=== PATIENT | female | born 1955 | race Caucasian/White ===

== ENCOUNTER 2018-09-07 13:30 | Outpatient (RCR) | payer BC, SELFPAY ==
--- NOTE | 2018-08-10 15:52 | HP.OTEVAL_ITS ---
Patient's Visit Information CLARE DUNNE is a 62 year old F, referred to Occupational Therapy by Alex Souza MD, with a diagnosis of left Unilateral primary osteoarthritis of 1st Carpometacarpal joint of left. Date of Evaluation: 08/10/18 Occupational Therapist: Lexie Marquez, OTR/L, CHT - Subjective Subjective: Pt states for several years her left thumb had been painful- pt went to see Dr. Souza and he opt for sx. left CMC joint pain. pt works at [employer] and needs to return to work lifting 30#. pt states she does still have pain and her fingers are sore. - Pain left hand 3 Pain Intensity Range: 1, 4 - ROM Wrist: left 55/35 right 75/70 CMC: left 5 right 10 MP: left 25 right 65 IP: left 30 right 72 Opposition: 4 - Strength Lace Paper Machine Operator: left NT right 55# Lateral Pinch: left NT right 8# Tripod Pinch: left NT right 8# - Edema Wrist: left 21.5cm right 17 Proximal Phalanx: left 21cm right 21 - Sensation Sensation Comments: denies - Hand/Wrist Evaluation Total Score of Pain & Functional Sections: 71 - Goals Goal:100% adherence to protocol: Yes Comment: CMC arthroplasty protocol Goal:Daily scar massage when approriate: Yes Goal:ROM equal to unaffected hand: Yes Goal:Lace Paper Machine Operator/Pinch strength at least 75% of unaffected hand: Yes Goal:No pain with affected hand use: Yes Goal:Full use of affected hand in daily activities including: Yes - Rehabilitation General Assessment: PT is currently 5 weeks s/p left CMC arthroplasty. Pt attends session with radial side thumb spica orthosis on- needing adj to increase comfort. pt is demo limited left wrist/thumb ROM, edema and limited functional strength following her arthroplasty. pt would benefit from skillled OTR/L, CHT services 1-2x week for 4-6 weeks. Theray services will follow CMC arthroplasty protocol. Rehabilitation Potential: Excellent - Anticipated Interventions Anticipated Interventions: A/AAROM/PROM, Strengthening, Sensory Retraining, Modalities, Orthoses, Joint Protection/Energy Conservation, Ergonomic Education, Fine Motor Coord/Ramiro - Visit Plan Frequency: 2-3x /Week Duration: 6 Weeks TEXT: Thank you for the opportunity to evaluate your patient. For Medicare and Medicare HMO plans, please review the plan of care and approve it. It will need to be FAXED BACK to us at [phone] for Medicare purposes. Please let me know if there are questions or concerns regarding this plan of care. Physician Signature: Date:
--- NOTE | 2019-02-13 08:20 | HP.OTDCSUM_ITS ---
HP - OT D/C Summary It has been my pleasure to treat CLARE DUNNE under orders from Alex Souza MD, for the diagnosis of left Unilateral primary osteoarthritis of 1st Carpometacarpal joint of left for a total of 7 visit(s). Please see the following information for a summary of their discharge status. - Objective Objective/Function: pt. is reporting less pain overall. OT noted that pt. is likely over working thumb area at work. OT instructed pt. to wear brace while at work. - Goals Patient Goals: Regain Mobility, Regain Strength, Decrease Pain, Decrease Swelling/Stiffness, Improve Fine Motor Skills, Use Hand/Wrist/Arm Normally Again, Be More Independent in ADLS Goal:100% adherence to protocol: Yes Goal:Daily scar massage when approriate: Yes Goal:ROM equal to unaffected hand: Yes Goal:Trauma Program Manager/Pinch strength at least 75% of unaffected hand: Yes Goal:No pain with affected hand use: Yes Goal:Full use of affected hand in daily activities including: Yes - Plan Plan: cont. BTE. PB. UE exercises. vibration. work simulation - D/C Information If there are questions or concerns regarding this patient's occupational therapy, please fell free to call me at [phone]. Thank you for the referral of this patient. Sincerely, Lexie Marquez, OTR/L, CHT
--- NOTE | 2019-02-13 08:20 | HP.OT.NRP ---
HP - Discharge Summary - Patient Information CLARE DUNNE was seen in my office for initial evaluation on 08/10/18. The following Plan of Care was established for this patient: Initial Frequency: 2-3x /Week Initial Duration: 6 Weeks Plan: cont. BTE. PB. UE exercises. vibration. work simulation - Anticipated Interventions Anticipated Interventions: A/AAROM/PROM, Strengthening, Sensory Retraining, Modalities, Orthoses, Joint Protection/Energy Conservation, Ergonomic Education, Fine Motor Coord/Ramiro This patient was last seen in our office 09/07/18. Pertinent comments regarding their Occupational therapy will appear below: pt. made progress with strength and ROM, reported overall decrease in pain and ability to engage in more BADL's and IADL's. pt. last seen on 09/07/18 and cancelled several therapy sessions making overall progress variable. pt. d/c d/t time lapse from last therapy session. pt. educated on HEP during therapy sessions. At this point I will be discontinuing this patient from occupational therapy. I would be happy to see this patient again in the future if found appropriate by the physician. Thank you! Lexie Marquez, OTR/L, CHT
== END 2018-09-07 19:00 | disposition home or self-care (01) ==
LOC: OT 13:30
PROVIDERS: Family Provider Internal Medicine; PCP Internal Medicine; Referring Provider Orthopaedic Surgery; Visit Provider Orthopaedic Surgery
DX: M18.12 Unilateral primary osteoarthritis of first carpometacarpal joint, left hand (principal)
CPT/HCPCS: 97035; 97110; 97140; 97166; 97763

== ENCOUNTER 2022-04-05 08:33 | Observation (INO) | payer BC, SELFPAY ==
[2022-04-05] VITALS (20 sets, daily range): BP systolic 118–170; BP diastolic 65–98; PULSE 64–78; RESP 14–18; TEMP 36.6–37.2; O2SAT 97–99; BMI 43.9; BMI 43.1
--- NOTE | 2022-04-05 08:43 | EKG12_ITS ---
Test Reason : CP Blood Pressure : / mmHG Vent. Rate : 072 BPM Atrial Rate : 072 BPM P-R Int : 178 ms QRS Dur : 144 ms QT Int : 424 ms P-R-T Axes : 002 -58 137 degrees QTc Int : 464 ms Normal sinus rhythm Left axis deviation Left bundle branch block Abnormal ECG Confirmed by BARBARA MARR, DARLING ([id number]), production editor ELOISE ALLEN ([id number]) on 04/06/2022 1:33:55 PM Referred By: BB Confirmed By:DARLING JIMENEZ MD
--- NOTE | 2022-04-05 08:55 | EDS_ITS ---
HPI History of Present Illness Chief Complaint: Chest Pain Informant: patient Onset/Context/Timing Onset: Today Activity at onset: sleep Timing: Intermittent Quality: Positive for Heaviness Location: Substernal (Without radiation) Current Severity: Gone Maximum Severity: Moderate Worsened By: Exertion Relieved By: Rest Associated Symptoms: Positive for Nausea (Gone now) and Dyspnea (Exertional ongoing); Negative for Vomiting, Diaphoresis, Cough, Fever, Lightheadedness and Palpitations Narrative Narrative: Patient states she woke up in a panic attack with no other symptoms. States she felt like she was crawling out of her skin, she has had panic attacks in the past but she woke up with this 1. And upon getting out of bed she noticed exertional dyspnea, it is mostly when she is going up and down flights of steps, not necessarily when just walking on flat ground short distances. She had chest heaviness when she was walking up the steps as well, the symptoms resolved upon resting for several minutes. She denies any other symptoms this morning, no cough or symptoms of an illness recently she felt fine when she went to bed last night. She has an as needed prescription for furosemide that she takes when her legs get swollen, she has not taken any in a long time but she took 1 prior to coming here today. Her legs have not been swollen lately. She denies orthopnea overnight or PND necessarily. She has a history of a dilated cardiomyopathy, she states she has had a cath and received no stents during it but does not remember the details of the cath. She follows with cardiology here, Dr. Bhardwaj. [facility] Medical History Dilated cardiomyopathy Diverticulosis Essential (primary) hypertension Hemorrhoid HLD (hyperlipidemia) Left bundle branch block (LBBB) Home Medications nitrofurantoin macrocrystal 50 mg PO DAILY 01/27/14 [History Last Taken Unknown] sertraline 50 mg PO DAILY 01/27/14 [History Last Taken Unknown] furosemide 40 mg tablet 40 mg PO DAILY PRN 09/07/18 [History Last Taken Unknown] azelaic acid 15 % topical gel 1 applic TOPICAL .3xweek g 09/06/19 [History Last Taken Unknown] cholecalciferol (vitamin D3) 1,250 mcg (50,000 unit) capsule 50,000 unit PO .QOW cap 09/06/19 [History Last Taken Unknown] aspirin 81 mg tablet,delayed release 81 mg PO DAILY 08/24/21 [History Last Taken Unknown] nabumetone 750 mg tablet 750 mg PO DAILY tab 08/24/21 [History Last Taken Unknown] pravastatin 40 mg tablet 40 mg PO QHS #90 tab 08/27/21 [Rx Last Taken Unknown] enalapril maleate 10 mg tablet 10 mg PO BID #180 tab 09/29/21 [Rx Last Taken Unknown] metoprolol succinate 100 mg tablet,extended release 24 hr 100 mg PO BID #180 tab 09/29/21 [Rx Last Taken Unknown] amlodipine 5 mg tablet 5 mg PO DAILY #90 tab 12/21/21 [Rx Last Taken Unknown] desloratadine [Clarinex] 5 mg PO DAILY 04/05/22 [History Last Taken Unknown] Allergy/AdvReac Type Severity Reaction Status Date / Time Sulfa (Sulfonamide Allergy Hives Verified 04/05/22 08:33 Antibiotics) Family History Father CAD (coronary artery disease) Myocardial infarction Mother CAD (coronary artery disease) Surgical History H/O section H/O knee surgery History of ankle surgery History of cardiac catheterization (10/26/01) History of hip replacement History of knee replacement procedure of right knee History of thumb surgery History of toe surgery Social History Smoking Status: Former smoker how long ago did patient quit smokin years ago alcohol intake: current alcohol intake frequency: holidays/special occasions only substance use type: does not use caffeine: Yes Type: tea Number of servings: 1 ROS ROS ED Constitutional Constitutional ED: Denies chills or fever(s) Eyes Eyes: Denies change in vision or diplopia ENT ENT ED: Denies rhinorrhea or sore throat Cardiovascular Cardiovascular: Reports as per HPI, chest pain and dyspnea on exertion; Denies orthopnea, palpitations or pedal edema Respiratory/Chest Respiratory/Chest: Reports as per HPI and dyspnea on exertion; Denies cough or orthopnea Gastrointestinal Gastrointestinal: Denies abdominal pain, diarrhea, nausea or vomiting Genitourinary Genitourinary ED: Denies dysuria or hematuria Musculoskeletal Musculoskeletal: Denies back pain or neck pain Integumentary Denies abscess or rash Neurologic Neurologic: Denies headache(s), paresthesias or weakness Psychiatric Psychiatric: Denies anxiety or suicidal thoughts EXAM Physical Exam Const Vital Signs: 04/05/22 08:36 04/05/22 09:06 04/05/22 09:11 Temperature 97.9 F Temperature Source Temporal Pulse Rate 78 70 69 Respiratory Rate 17 14 Respiratory Effort Normal Blood Pressure 170/86 H 139/76 H 139/76 H Blood Pressure Mean 114 97 Pulse Ox 97 99 Oxygen Delivery Method Room Air Room Air 04/05/22 10:34 04/05/22 11:00 Temperature Temperature Source Pulse Rate 74 74 Respiratory Rate 18 14 Respiratory Effort Blood Pressure 143/79 H 138/77 H Blood Pressure Mean 100 97 Pulse Ox 97 99 Oxygen Delivery Method Room Air Room Air Positive well nourished and well developed General Appearance ED: well developed and NAD HEENT Reports moist mucous membranes normocephalic and atraumatic Eyes PERRL and EOMs intact bilaterally Neck full ROM and supple Resp normal respiratory effort Resp Narrative: Few rhonchi bases otherwise clear Effort and Inspection: able to speak in complete sentences Cardio regular rate, regular rhythm and no murmurs Rate: Negative for tachycardic GI non-tender and non-distended Auscultation: normoactive bowel sounds Palpation: soft Back/Spine no CVA tenderness General Back: other FROM Extremity normal to inspection General Extremety ED: Negative for edema, pulses abnormal or tenderness General Extremity: Negative for edema or pulses abnormal Neuro oriented x3, CN's II-XII intact bilaterally and no sensory deficits noted Sensorium / Orientation: awake and alert Motor Exam: strength 5/5 throughout Skin no rashes or lesions noted and no wounds MDM MDM MDM Narrative Medical decision making narrative: Patient fairly hypertensive 170 systolic, so while working her up nitroglycerin paste was placed on her chest. Next blood pressure 138/77, she is feeling well. Her initial troponin is elevated at 111. Her EKG is different compared with her last, with regards to axis mostly but no acute injury pattern, but her last EKG was in 2001. I discussed with Dr. Bhardwaj with cardiology, he compared it to a more recent EKG from 2018 that he has, and it is unchanged. He requested that we keep the patient in the ED for short period of time until the Night Shift Manager can organize and they can take her up to study her. Discussed with hospitalist, she was given aspirin, no heparin or other medications desired at this time. Lab Data Attestation: I reviewed the patient's lab results. Labs: Laboratory Results - last 24 hr 04/05/22 04/05/22 04/05/22 09:00 09:00 09:00 WBC 9.8 RBC 4.64 Hgb 13.7 Hct 42.6 MCV 91.8 MCH 29.5 MCHC 32.2 RDW Std Deviation 48.7 H RDW Coeff of Briana 14.5 Plt Count 308 MPV 10.3 Immature Gran % (Auto) 0.300 Neut % (Auto) 66.6 Lymph % (Auto) 23.9 [place] % (Auto) 6.3 Eos % (Auto) 1.6 Baso % (Auto) 1.3 H Absolute Neuts (auto) 6.6 Absolute Lymphs (auto) 2.35 Nucleated RBC % 0 Sodium 136 Potassium 4.4 Chloride 104 Carbon Dioxide 27.0 Anion Gap 5 BUN 16 Creatinine 1.00 Estim Creat Clear Calc 53.21 Est GFR (MDRD) Af Amer 72 Est GFR (MDRD) Non-Af 59 L BUN/Creatinine Ratio 16.0 Glucose 143 H Calcium 9.7 Troponin I High Sens 111 H B-Natriuretic Peptide 30.5 Radiography Diagnostic Testing: Clinical Impression(s) from Imaging Studies Chest X-Ray 04/05/22 09:16 IMPRESSION: Mild cardiomegaly. No acute abnormality is seen. Electronically Signed: Riki Moncada MD at 9:48 EDT , Rhythm Strip Rhythm Strip: Sinus Rhythm Rate: 70 Ectopy: None EKG Initial EKG: Attestation: I personally reviewed and interpreted this EKG as follows: Interpretation: Sinus Rhythm, No Acute Injury Pattern and LBBB Prior EKG tracings: available for review (2001) Prior: Changed (see above) Discharge Plan Triage Chief Complaint: Chest Pain ED Provider: Pablo Hernandez Dx/Rx/DC Orders Clinical Impression: ACS (acute coronary syndrome) Prescriptions: No Action cholecalciferol (vitamin D3) 50,000 unit capsule 50,000 unit PO .QOW RF: 0 nabumetone 750 mg tablet 750 mg PO DAILY RF: 0 azelaic acid 15 % gel 1 applic TOPICAL .3xweek RF: 0 aspirin [Adult Aspirin Regimen] 81 mg tablet,delayed release (DR/EC) 81 mg PO DAILY RF: 0 nitrofurantoin macrocrystal 50 MG capsule 50 mg PO DAILY RF: 0 sertraline 50 MG tablet 50 mg PO DAILY RF: 0 furosemide 40 mg tablet 40 mg PO DAILY PRN (Reason: Edema) RF: 0 desloratadine [Clarinex] 5 mg Tablet 5 mg PO DAILY RF: 0 pravastatin 40 mg tablet 40 mg PO QHS Qty: 90 RF: 3 metoprolol succinate 100 mg tablet extended release 24 hr 100 mg PO BID Qty: 180 RF: 4 enalapril maleate 10 mg tablet 10 mg PO BID Qty: 180 RF: 4 amlodipine 5 mg tablet 5 mg PO DAILY Qty: 90 RF: 3 Primary Care Provider: Radha Austin Referrals: Radha Austin MD [Primary Care Provider] - Disposition Disposition: Acute Care Hospital [facility]
[2022-04-05 09:08] LABS: Absolute Lymphocyte Count 2.35 X10^3/uL (0.83-4.51); Absolute Neutrophil Count 6.6 X10^3/uL (2.0-7.7); Basophil# 0.13 X10^3/uL; Basophil% 1.3 % (0-1); Eosinophil# 0.16 X10^3/uL; Eosinophils% 1.6 % (0-5); Hematocrit 42.6 % (37-47); Hemoglobin 13.7 g/dL (12.0-15.0); Lymphocyte # 2.35 X10^3/ul (0.83-4.51); Lymphocyte % 23.9 % (19-41); Mean Corp Hgb Conc 32.2 g/dL (32-36); Mean Corpuscular Hgb 29.5 pg (27.0-32.0); Mean Corpuscular Volume 91.8 fL (81-99); Mean Platelet Vol. 10.3 fl (6.2-12.0); Monocyte# 0.62 X10^3/uL; Monocyte% 6.3 % (0-10); NRBC Flagged by Analyzer 0 % (0-5); Neutrophil # 6.55 X10^3/uL (2.7-7.7); Neutrophil % 66.6 % (47-70); Platelet Count 308 K/mm3 (150-450); RBC Distribution Width CV 14.5 % (11.6-14.6); RBC Distribution Width SD 48.7 fl (35.1-43.9); Red Blood Count 4.64 M/mm3 (4.2-5.4); White Blood Count 9.8 K/mm3 (4.4-11.0)
[2022-04-05] MEDS: Aspirin 81 MG TAB.CHEW 162 MG PO (09:11)
[2022-04-05] MEDS: Nitroglycerin Oint 1 INCH PACKET 0.5 INCH TRANSDERM. (09:11)
--- NOTE | 2022-04-05 09:16 | RAD_ITS ---
STUDY: X-RAY CHEST REASON FOR EXAM: Female, 66 years old. Chest pain TECHNIQUE: Single AP portable view of the chest. COMPARISON: None. FINDINGS: The lungs are clear and expanded. There is no demonstrated pleural abnormality. There is mild cardiac enlargement. Normal mediastinum and laureano. Normal visualized pulmonary arteries. There is atherosclerotic calcification of the aortic arch with tortuosity. There are diffuse degenerative changes of the visualized thoracic spine. Dextroscoliosis. Normal visualized ribs, clavicles, and shoulders. There is no demonstrated abnormality of the visualized soft tissue structures of the upper abdomen. RAD/Chest 1 View (Portable) IMPRESSION: Mild cardiomegaly. No acute abnormality is seen. Electronically Signed: Riki Moncada MD at 9:48 EDT ,
[2022-04-05 09:24] LABS: Anion Gap 5 (5-15); BUN 16 mg/dL (7-18); Calcium,Total 9.7 mg/dL (8.5-10.1); Chloride 104 mmol/L (98-107); EST Glomerular Filtration Rate 59 mL/min (>60); Est Glom Filt Rate - Afr Amer 72 mL/min (>60); Estimated Creatinine Clearance 53.21 ml/min; Glucose 143 mg/dL (74-106); Potassium 4.4 mmol/L (3.5-5.1); Sodium Level 136 mmol/L (136-145); Troponin-I HS (w/2H Reflex) 111 pg/mL (3.0-54.0)
[2022-04-05 09:42] LABS: BNP,B-Type NATRIURETIC PEPTIDE 30.5 pg/mL (0-100)
[2022-04-05 11:05] LABS: Reflex Troponin-HS? (from REC) Y
--- NOTE | 2022-04-05 11:28 | NURSING ---
PCU AFTER [employer] [facility] ACUTE CORONARY SYNDROME
--- NOTE | 2022-04-05 11:49 | CON.PCM.CA_ITS ---
Assessment & Plan Assessment/Plan (1) ACS (acute coronary syndrome): PLAN: She presents with chest discomfort which is somewhat atypical. However due to the abnormality in the cardiac enzymes we may need to further haile luate the above. With a left bundle branch block as well as a cardiomyopathy a stress test may be fraught with false positive. After speaking with her I would prefer that we evaluate the above with a left heart catheterization. The risk benefits alternatives of and explained to her she understands and agrees to proceed. Depending on the findings further recommendations will be made. (2) Dilated cardiomyopathy: PLAN: She does have a history of a cardiomyopathy. We will continue to follow her and further recommendations made. (3) Essential (primary) hypertension: PLAN: Her blood pressure is under good control at this time and I would not make any other major changes. Thank you for allowing me to participate in the care of your patient. Please don't hesitate to call if any issues arise. HPI Consult Data Date of Consult: 04/05/22 HPI Narrative HPI Narrative: CLARE DUNNE, is a 66 F who presented to the emergency room this morning complaining of chest heaviness. She does have a history of known hypertension, nonischemic cardiomyopathy, with an estimated ejection fraction of 50%. She also has a chronic left bundle branch block. She presented today and was seen by the ER physician. He felt that there was some change in the EKG. Cardiac enzymes were obtained which were initially abnormal and a follow-up EKG was unchanged and a follow-up troponin was noted to have been elevated at 111. It was therefore decided to admit her for further observation and management. At this particular time she denies any chest pain. She has been compliant with her medications. She remains on a beta-nuzhat, statin, and NANETTE inhibitor. [facility] Medical History Dilated cardiomyopathy Diverticulosis Essential (primary) hypertension Hemorrhoid HLD (hyperlipidemia) Left bundle branch block (LBBB) Home Medications nitrofurantoin macrocrystal 50 mg PO DAILY 01/27/14 [History Last Taken Unknown] sertraline 50 mg PO DAILY 01/27/14 [History Last Taken Unknown] furosemide 40 mg tablet 40 mg PO DAILY PRN 09/07/18 [History Last Taken Unknown] azelaic acid 15 % topical gel 1 applic TOPICAL .3xweek g 11/07/19 [History Last Taken Unknown] cholecalciferol (vitamin D3) 1,250 mcg (50,000 unit) capsule 50,000 unit PO .QOW cap 09/06/19 [History Last Taken Unknown] aspirin 81 mg tablet,delayed release 81 mg PO DAILY 08/24/21 [History Last Taken Unknown] nabumetone 750 mg tablet 750 mg PO DAILY tab 08/24/21 [History Last Taken Unknown] pravastatin 40 mg tablet 40 mg PO QHS #90 tab 08/27/21 [Rx Last Taken Unknown] enalapril maleate 10 mg tablet 10 mg PO BID #180 tab 09/29/21 [Rx Last Taken Unknown] metoprolol succinate 100 mg tablet,extended release 24 hr 100 mg PO BID #180 tab 09/29/21 [Rx Last Taken Unknown] amlodipine 5 mg tablet 5 mg PO DAILY #90 tab 12/21/21 [Rx Last Taken Unknown] desloratadine [Clarinex] 5 mg PO DAILY 04/05/22 [History Last Taken Unknown] Allergy/AdvReac Type Severity Reaction Status Date / Time Sulfa (Sulfonamide Allergy Hives Verified 04/05/22 08:33 Antibiotics) Family History Father CAD (coronary artery disease) Myocardial infarction Mother CAD (coronary artery disease) Surgical History H/O section H/O knee surgery History of ankle surgery History of cardiac catheterization (10/26/01) History of hip replacement History of knee replacement procedure of right knee History of thumb surgery History of toe surgery Social History Smoking Status: Former smoker how long ago did patient quit smokin years ago alcohol intake: current alcohol intake frequency: holidays/special occasions only substance use type: does not use caffeine: Yes Type: tea Number of servings: 1 ROS Constitutional Constitutional: Denies fever(s) or weight loss Eyes Eyes: Reports systems reviewed and no addt'l complaints, except as documented ENT HEENT: Reports systems reviewed and no addt'l complaints, except as documented Cardiovascular Cardiovascular: Denies chest pain at rest, chest pain with activity, dyspnea at rest, dyspnea on exertion, edema, palpitations or paroxysmal nocturnal dyspnea Respiratory/Chest Respiratory/Chest: Denies dyspnea on exertion, productive cough, shortness of breath at rest or shortness of breath with exertion Gastrointestinal Gastrointestinal: Denies change in bowel habits, nausea, vomiting or weight changes Genitourinary Genitourinary: Denies difficulty urinating Musculoskeletal Musculoskeletal: Denies joint stiffness or muscle weakness Integumentary Integumentary: Denies lesions Neurologic Neurologic: Denies dizziness or syncope Psychiatric Psychiatric: Denies anxiety Endocrine Endocrinology: Denies excessive sweating or fatigue Hematologic/Lymphatic Hematologic/Lymphatic: Denies anemia Allergic/Immunologic Allergic/Immunologic: Denies seasonal rhinorrhea Physical Exam Const alert, oriented x3 and no apparent distress General Appearance: cooperative HEENT hearing grossly normal bilaterally Head and Scalp: atraumatic Eyes EOMs intact bilaterally Neck General: normal visual inspection Chest inspection of chest normal and palpation of chest normal Resp normal respiratory effort Auscultation: clear to auscultation bilaterally Cardio regular rate, regular rhythm, S1 normal heart sound and S2 normal heart sound Jugular Venous Distention: JVD GI normal to inspection, nondistended, normoactive bowel sounds Extremity normal capillary refill and no pedal edema Peripheral Pulses: Yes pulses 2+ throughout and femoral pulses present Skin no rashes or lesions noted Neuro oriented x3 and CN's II-XII intact bilaterally Psych Appearance: grossly normal and appropriate Risk Stratification Risk Stratification Applicable: Yes Age >/= 65: No >/= 3 CAD Risk Factors (HTN, HLD, DM, family hx of CAD, or current smoker): No Aspirin Use in the Past 7 Days: No Severe Angina (>/= episodes in 24 hours): No EKG ST Changes >/= 0.5mm: No Positive Cardiac Marker: Yes POLLY Risk Stratification Score: 1 POLLY % Risk: 5% Risk Objective Data Vital Signs: Vital Signs Temp Pulse Resp BP Pulse Ox 98.9 F 74 16 128/80 H 98 04/05/22 11:10 04/05/22 11:10 04/05/22 11:25 04/05/22 11:25 04/05/22 11:10 Oxygen Delivery Method Room Air Weight: 272 lb 4.334 oz Body Mass Index (BMI) 43.9 Lab / Micro Data Result Diagrams: 04/05/22 09:00 04/05/22 09:00 Labs: Laboratory Results - last 24 hr 04/05/22 09:00: WBC 9.8, RBC 4.64, Hgb 13.7, Hct 42.6, MCV 91.8, MCH 29.5, MCHC 32.2, RDW Std Deviation 48.7 H, RDW Coeff of Briana 14.5, Plt Count 308, MPV 10.3, Immature Gran % (Auto) 0.300, Neut % (Auto) 66.6, Lymph % (Auto) 23.9, [place] % (A uto) 6.3, Eos % (Auto) 1.6, Baso % (Auto) 1.3 H, Absolute Neuts (auto) 6.6, A bsolute Lymphs (auto) 2.35, Nucleated RBC % 0 04/05/22 09:00: Sodium 136, Potassium 4.4, Chloride 104, Carbon Dioxide 27.0, Anion Gap 5, BUN 16, Creatinine 1.00, Estim Creat Clear Calc 53.21, Est GFR (MDRD) Af Amer 72, Est GFR (MDRD) Non-Af 59 L, BUN/Creatinine Ratio 16.0, Glucose 143 H, Calcium 9.7, Troponin I High Sens 111 H 04/05/22 09:00: B-Natriuretic Peptide 30.5 Rhythm Strip Rhythm Strip: Sinus Rhythm Rate: 70 Ectopy: None Cardiology Labs/Tests 04/05/22 09:00: WBC 9.8, RBC 4.64, Hgb 13.7, Hct 42.6, MCV 91.8, MCH 29.5, MCHC 32.2, Plt Count 308, MPV 10.3, Immature Gran % (Auto) 0.300, Neut % (Auto) 66.6, Lymph % (Auto) 23.9, [place] % (Auto) 6.3, Eos % (Auto) 1.6, Baso % (Auto) 1.3 H, Absolute Neuts (auto) 6.6, Nucleated RBC % 0 04/05/22 09:00: Sodium 136, Potassium 4.4, Chloride 104, Carbon Dioxide 27.0, Anion Gap 5, BUN 16, Creatinine 1.00, Est GFR (MDRD) Af Amer 72, Est GFR (MDRD) Non-Af 59 L, BUN/Creatinine Ratio 16.0, Glucose 143 H, Calcium 9.7 04/05/22 09:00: B-Natriuretic Peptide 30.5 Rhythm: EKG: ECHO: Stress Test: Cardiac Cath: PCI: CT Surgery: Holter monitor: EPS: PPM: CXR: Chest CT Scan: Radiography Diagnostic Testing: Radiology Impression Chest X-Ray 04/05/22 09:16 IMPRESSION: Mild cardiomegaly. No acute abnormality is seen. Electronically Signed: Riki Moncada MD at 9:48 EDT ,
[2022-04-05 12:02] LABS: Troponin-I HS 104 pg/mL (3.0-54.0)
--- NOTE | 2022-04-05 13:02 | CL.D_ITS ---
Patient Name: CLARE DUNNE Study Date: 04/05/2022 Performing: Denys Bhardwaj MD Ht: 66 inches 168 cm : 1955 Wt: 273.7 lbs 124 kg Age: 66 Gender: female BSA: 2.29 PROCEDURE(S) PERFORMED [id number])LHC/COR/LV CLINICAL PROFILE AND INDICATIONS Indications: Suspected CAD Heart Failure: None Stress/Imaging Stress/Image Study Performed: No CAD Presentations: Symptom unlikely to be ischemic. CONCLUSIONS Non obstructive coronary arteries Cardiomyopathy: Non-ischemic RECOMMENDATIONS Medical therapy DESCRIPTION OF PROCEDURE The patient arrived to the procedure lab. The risks and benefits of the procedure as well as a full d escription of our services here and current unavailability of surgical backup were fully explained to the patient and/or their significant other prior to the catheterization. The Timeout was completed, verifying the correct patient and procedure. The patient's procedural site was prepped and draped in the usual fashion. Local anesthetic was given subcutaneously to right radial region with Lidocaine 2% . Using a modified Seldinger technique, arterial access was obtained via the right radial artery, a 6 Fr sheath was inserted. Left Coronary Artery selective angiography was performed in multiple views u sing a 5 Fr. 4.0 [place] catheter. Right Coronary Artery selective angiography was then performed in mu ltiple views using a 5 Fr. 4.0 [place] catheter. Left Ventriculography was performed in XIONG projection using a 5 Fr. [place] catheter. LV to AO pullback pressures were then recorded.The arterial sheath was pulled and a TR Band was applied for hemostasis CORONARY ANGIOGRAPHY DOMINANCE: Right Dominant LEFT HEART ASSESSMENT Left Ventricular Ejection Fraction: by LV Gram 50 % Global Hypokinesis - Mild Depressed Left Ventricular systolic function Cardiomyopathy: Dilated idiopathic LEFT MAIN: Angiographically normal LEFT ANTERIOR DESCENDING ARTERY: Mild luminal irregularities less than 30% CIRCUMFLEX ARTERY: Mild luminal irregularities less than 30% RIGHT CORONARY ARTERY: Moderate luminal irregularities up to 50% COMPLICATIONS No Complications PROCEDURE MEDICATIONS Fentanyl 50 mcg IV Versed 1 mg IV Versed 1 mg IV Versed 1 mg IV Oxygen: 2 L/min via nasal cannula Heparin given IA 04/05/2022 12:28:24 Verapamil 2.5mg, Ntg 100mcgs, 3000 units of Heparin given IA 04/05/2022 12:28:24 IV Bolus: .9 NaCl 200 ml total 04/05/2022 12:49:05 SUMMARY OF HEMODYNAMIC DATA Time AIR REST ECG 12:03:29 AO 75/55 (63) SA 12:29:55 LV 99/3, 9 12:39:48 LV 98/5, 12 12:39:57 LV 98/9, 18 12:42:10 LVp 95/6, 13 12:42:15 AOp 101/61 (77) 12:42:22 Signed By Denys Bhardwaj MD On 04/05/2022 1:00:56 PM Denys Bhardwaj MD
[2022-04-05] MEDS: 0.9% Normal Saline 1,000 ML 60 ML IV (14:54)
--- NOTE | 2022-04-05 16:52 | PCM.DC ---
Discharge Instructions Diet Discharge Diet: Low fat / Low cholesterol Dressing / Incision Call your doctor if you observe: Fever of 101 or Higher, Shortness of breath, Dizziness, Fainting spells, Swelling in the ankles, Chest pain and Increased palpitations (irregular heartbeat) Follow Up Care Test Results: Test results from this visit will be discussed in further detail at your follow-up appointment, if applicable. Discharge Plan Admission Admit Date/Time: 04/05/22 11:03 Attending Provider: Manuel Bey Primary Care Provider: Radha Austin Consulting Providers: Denys Bhardwaj Discharge Orders/Prescriptions Prescriptions: Continued cholecalciferol (vitamin D3) 50,000 unit capsule 50,000 unit PO .QOW RF: 0 nabumetone 750 mg tablet 750 mg PO DAILY RF: 0 azelaic acid 15 % gel 1 applic TOPICAL .3xweek RF: 0 aspirin [Adult Aspirin Regimen] 81 mg tablet,delayed release (DR/EC) 81 mg PO DAILY RF: 0 nitrofurantoin macrocrystal 50 MG capsule 50 mg PO DAILY RF: 0 sertraline 50 MG tablet 50 mg PO DAILY RF: 0 furosemide 40 mg tablet 40 mg PO DAILY PRN (Reason: Edema) RF: 0 desloratadine [Clarinex] 5 mg Tablet 5 mg PO DAILY RF: 0 pravastatin 40 mg tablet 40 mg PO QHS Qty: 90 RF: 3 metoprolol succinate 100 mg tablet extended release 24 hr 100 mg PO BID Qty: 180 RF: 4 enalapril maleate 10 mg tablet 10 mg PO BID Qty: 180 RF: 4 amlodipine 5 mg tablet 5 mg PO DAILY Qty: 90 RF: 3 Referrals / Follow Up: Denys Bhardwaj MD [STAFF PHYSICIAN] - Within 3 Months Radha Austin MD [Primary Care Provider] - Within 1 Week Disposition Disposition (needs filled in before D/C Order can be placed): Home, Self Care
--- NOTE | 2022-04-05 16:54 | HP.PCM.HOS_ITS ---
HPI - General General Date of Admission: 04/05/22 HPI Narrative CLARE DUNNE, is a 66 F who presents to the hospital with intermittent chest pressure today. She states that both these occurred with going up the stairs and then they resolved with rest. They both lasted the same amount of time with each episode of climbing up the stairs. She does have a history of dilated cardiomyopathy with a normal heart cath about 15 to 20 years ago. She quit smoking about 20 years ago and this is the first time she has had any chest pain/pressure. She does follow-up with cardiology as an outpatient and she was evaluated in the ER and they recommended at that time to go for a heart cath directly from the ER. Troponins in the ER were elevated at 111, EKG was unremarkable indicative of a non-STEMI. [facility] Medical History Dilated cardiomyopathy Diverticulosis Essential (primary) hypertension Hemorrhoid HLD (hyperlipidemia) Left bundle branch block (LBBB) Home Medications nitrofurantoin macrocrystal 50 mg PO DAILY 01/27/14 [History Last Taken Unknown] sertraline 50 mg PO DAILY 01/27/14 [History Last Taken Unknown] furosemide 40 mg tablet 40 mg PO DAILY PRN 09/07/18 [History Last Taken Unknown] azelaic acid 15 % topical gel 1 applic TOPICAL .3xweek g 09/06/19 [History Last Taken Unknown] cholecalciferol (vitamin D3) 1,250 mcg (50,000 unit) capsule 50,000 unit PO .QOW cap 09/06/19 [History Last Taken Unknown] aspirin 81 mg tablet,delayed release 81 mg PO DAILY 08/24/21 [History Last Taken Unknown] nabumetone 750 mg tablet 750 mg PO DAILY tab 08/24/21 [History Last Taken Unknown] amlodipine 5 mg PO DAILY 04/05/22 [History Last Taken Unknown] desloratadine [Clarinex] 5 mg PO DAILY 04/05/22 [History Last Taken Unknown] enalapril maleate 10 mg PO BID 04/05/22 [History Last Taken Unknown] metoprolol succinate 100 mg PO BID 04/05/22 [History Last Taken Unknown] pravastatin 40 mg PO QHS 04/05/22 [History Last Taken Unknown] Allergy/AdvReac Type Severity Reaction Status Date / Time Sulfa (Sulfonamide Allergy Hives Verified 04/05/22 08:33 Antibiotics) Family History Father CAD (coronary artery disease) Myocardial infarction Mother CAD (coronary artery disease) Surgical History H/O section H/O knee surgery History of ankle surgery History of cardiac catheterization (10/26/01) History of hip replacement History of knee replacement procedure of right knee History of thumb surgery History of toe surgery Social History Smoking Status: Former smoker how long ago did patient quit smokin years ago alcohol intake: current alcohol intake frequency: holidays/special occasions only substance use type: does not use caffeine: Yes Type: tea Number of servings: 1 ROS Constitutional Constitutional: Denies chills, fatigue, fever(s) or malaise Eyes Eyes: Denies blurry vision ENT HEENT: Denies headache(s) or nasal discharge Cardiovascular Cardiovascular: Reports chest pain; Denies dyspnea on exertion or syncope Respiratory/Chest Respiratory/Chest: Denies cough, shortness of breath at rest or shortness of breath with exertion Gastrointestinal Gastrointestinal: Denies constipation, diarrhea, nausea or vomiting Genitourinary Genitourinary: Denies dysuria Neurologic Neurologic: Denies focal weakness, numbness or tremor(s) Psychiatric Psychiatric: Denies anxiety or depression Vital Signs Vital Signs Vital Signs: 04/05/22 08:36 04/05/22 09:06 04/05/22 09:11 Temperature 97.9 F Temperature Source Temporal Pulse Rate 78 70 69 Respiratory Rate 17 14 Respiratory Effort Normal Respiratory Depth Respiratory Pattern Blood Pressure 170/86 H 139/76 H 139/76 H Blood Pressure Mean 114 97 Blood Pressure Source Blood Pressure Position Blood Pressure Location Pulse Ox 97 99 Oxygen Delivery Method Room Air Room Air 04/05/22 10:34 04/05/22 11:00 04/05/22 11:10 Temperature 98.9 F Temperature Source Temporal Pulse Rate 74 74 74 Respiratory Rate 18 14 16 Respiratory Effort Respiratory Depth Respiratory Pattern Blood Pressure 143/79 H 138/77 H 136/98 H Blood Pressure Mean 100 97 110 Blood Pressure Source Blood Pressure Position Blood Pressure Location Pulse Ox 97 99 98 Oxygen Delivery Method Room Air Room Air Room Air 04/05/22 11:25 04/05/22 13:05 04/05/22 13:15 Temperature 98.2 F Temperature Source Oral Pulse Rate 69 66 Respiratory Rate 16 18 16 Respiratory Effort Respiratory Depth Respiratory Pattern Blood Pressure 128/80 H 118/66 122/65 H Blood Pressure Mean 83 84 Blood Pressure Source Monitor Blood Pressure Position Semi-Fowlers Blood Pressure Location Left Arm Pulse Ox 98 97 Oxygen Delivery Method Room Air Room Air 04/05/22 13:30 04/05/22 13:45 04/05/22 14:00 Temperature Temperature Source Pulse Rate 68 68 64 Respiratory Rate 16 16 16 Respiratory Effort Normal Non-Labored Respiratory Depth Normal Respiratory Pattern Normal Blood Pressure 145/76 H 122/78 H 141/82 H Blood Pressure Mean 99 92 101 Blood Pressure Source Monitor Monitor Monitor Blood Pressure Position Semi-Fowlers Semi-Fowlers Semi-Fowlers Blood Pressure Location Left Arm Left Arm Left Arm Pulse Ox 99 98 98 Oxygen Delivery Method Room Air Room Air Room Air 04/05/22 14:15 04/05/22 14:30 04/05/22 14:45 Temperature Temperature Source Pulse Rate 64 65 66 Respiratory Rate 18 16 16 Respiratory Effort Respiratory Depth Respiratory Pattern Blood Pressure 131/79 H 132/77 H 135/73 H Blood Pressure Mean 96 95 93 Blood Pressure Source Monitor Monitor Monitor Blood Pressure Position Semi-Fowlers Semi-Fowlers Semi-Fowlers Blood Pressure Location Left Arm Left Arm Left Arm Pulse Ox 98 97 98 Oxygen Delivery Method Room Air Room Air Room Air 04/05/22 14:55 04/05/22 15:00 04/05/22 15:15 Temperature Temperature Source Pulse Rate 66 65 66 Respiratory Rate 18 16 Respiratory Effort Respiratory Depth Respiratory Pattern Blood Pressure 140/83 H Blood Pressure Mean 102 Blood Pressure Source Monitor Monitor Blood Pressure Position Semi-Fowlers Semi-Fowlers Blood Pressure Location Left Arm Left Arm Pulse Ox 98 98 Oxygen Delivery Method Room Air Room Air 04/05/22 15:45 04/05/22 16:15 Temperature Temperature Source Pulse Rate 67 67 Respiratory Rate 18 18 Respiratory Effort Respiratory Depth Respiratory Pattern Blood Pressure 141/79 H 159/77 H Blood Pressure Mean 99 104 Blood Pressure Source Monitor Monitor Blood Pressure Position Semi-Fowlers Semi-Fowlers Blood Pressure Location Left Arm Left Arm Pulse Ox 99 97 Oxygen Delivery Method Room Air Weight Weight: 267 lb 3.204 oz Body Mass Index (BMI) 43.1 Physical Exam Const alert, oriented x3 and no apparent distress General Appearance: cooperative HEENT normocephalic and moist oral mucous membranes Eyes PERRL, EOMs intact bilaterally and conjunctivae normal Neck supple and no JVD Resp normal respiratory effort, no retractions, no use of accessory muscles and clear to auscultation bilaterally Auscultation: Negative for crackles, rales, rhonchi or wheezes Cardio regular rate, regular rhythm, S1 normal heart sound, S2 normal heart sound and no murmurs GI soft to palpation, non-tender and non-distended; Negative for hepatosplenomegaly Extremity no clubbing, cyanosis or edema Skin no rashes or lesions noted Neuro no focal motor deficits and no sensory deficits noted Psych affect normal Appearance: appropriate Results Lab / Micro Data Result Diagrams: 04/05/22 09:00 04/05/22 09:00 Labs: Laboratory Results - last 24 hr 04/05/22 09:00: WBC 9.8, RBC 4.64, Hgb 13.7, Hct 42.6, MCV 91.8, MCH 29.5, MCHC 32.2, RDW Std Deviation 48.7 H, RDW Coeff of Bri[place] 14.5, Plt Count 308, MPV 10.3, Immature Gran % (Auto) 0.300, Neut % (Auto) 66.6, Lymph % (Auto) 23.9, [place] % (Auto) 6.3, Eos % (Auto) 1.6, Baso % (Auto) 1.3 H, Absolute Neuts (auto) 6.6, Absolute Lymphs (auto) 2.35, Nucleated RBC % 0 04/05/22 09:00: Sodium 136, Potassium 4.4, Chloride 104, Carbon Dioxide 27.0, Anion Gap 5, BUN 16, Creatinine 1.00, Estim Creat Clear Calc 53.21, Est GFR (MDRD) Af Amer 72, Est GFR (MDRD) Non-Af 59 L, BUN/Creatinine Ratio 16.0, Glucose 143 H, Calcium 9.7, Troponin I High Sens 111 H 04/05/22 09:00: B-Natriuretic Peptide 30.5 04/05/22 11:30: Troponin I High Sens 104 H Rhythm Strip Rhythm Strip: Sinus Rhythm Rate: 70 Ectopy: None Radiology Impression Chest X-Ray 04/05/22 09:16 IMPRESSION: Mild cardiomegaly. No acute abnormality is seen. Electronically Signed: Riki Moncada MD at 9:48 EDT , Assessment & Plan Assessment/Plan (1) ACS (acute coronary syndrome): PLAN: 1. Acute coronary syndrome/dilated cardiomyopathy/HTN/HLD ? She will follow-up with cardiology to have a heart cath today and pending results will determine further care ? Can resume all of her home medications pending any changes that cardiology will make after heart cath ? She does have a history of dilated cardiomyopathy but is unknown as to the cause of his previous heart cath was negative for any coronary artery disease 2. Anxiety/depression ? Stable ? Continue with Zoloft ? She did mention the possibility of having a panic attack or anxiety before the chest pain started DVT: SCDs Charges/Coding Visit Charges Inpatient E&M: 96402 Init Hosp L2
== END 2022-04-05 17:30 | disposition home or self-care (01) ==
LOC: ED 12:26 → PCU 16:54
PROVIDERS: Admitting Provider Family Medicine; Emergency Provider Emergency Medicine; PCP Internal Medicine; Visit Provider Family Medicine
DX: I24.9 Acute ischemic heart disease, unspecified (principal); I42.0 Dilated cardiomyopathy; R07.89 Other chest pain; R11.0 Nausea; I44.7 Left bundle-branch block, unspecified; E78.5 Hyperlipidemia, unspecified; I10 Essential (primary) hypertension; Z87.891 Personal history of nicotine dependence; Z79.82 Long term (current) use of aspirin; Z79.899 Other long term (current) drug therapy; F32.A Depression, unspecified; F41.9 Anxiety disorder, unspecified; R06.00 Dyspnea, unspecified
CPT/HCPCS: 71045; 80048; 83880; 84484; 85025; 93005; 93458; 99152; 99153; 99218; 99285; J7030; J7040; Q9967; A4216; C1769; C1894; G0378